=== PATIENT | male | born 1970 | race Caucasian/White ===

== ENCOUNTER 2018-01-11 21:27 | Inpatient (IN) | payer OTHER, SELFPAY ==
[2018-01-11 22:40] LABS: Acetaminophen Less than 6.0 mcg/mL (10.0-30.0); Alcohol 26 mg/dL (Less than 10); Salicylate Less than 8.0 mg/dL (15.0-30.0)
[2018-01-11 22:43] LABS: CKMB 2.7 ng/mL (0-6.6); Troponin I Less than 0.010 ng/mL (< 0.028)
--- NOTE | 2018-01-11 22:54 | CT ---
CT OF THE BRAIN WITHOUT CONTRAST 01/11/18 COMPARISON: None. HISTORY: Shakiness and headache on the left side of the head. TECHNIQUE: Multiple contiguous axial images were obtained in a CT of the brain without contrast. FINDINGS: The brain is normal in morphology and attenuation without focal lesions or confluent areas of infarct ion. There is no evidence of hydrocephalus, intracranial hemorrhage or extra-axial fluid collection. The calvarium and overlying soft tissues are unremarkable. Mucosal thickening is seen in the left max illary sinus. The other paranasal sinuses and mastoid air cells are well aerated. IMPRESSION: No evidence of acute intracranial abnormality. POS: [facility]
[2018-01-11] MEDS ORDERED: Lorazepam 2 MG/ML VIAL ONE (22:55)
[2018-01-11 23:24] LABS: Amphetamine Detected (NotDetected); Barbiturates Screen Not Detected (NotDetected); Benzodiazepine Screen Detected (NotDetected); Cocaine Metabolite Screen Not Detected (NotDetected); Medtox Control Line Valid? VALID (VALID); Medtox Reader # READER 4; Methadone Not Detected (NotDetected); Methamphetamine Detected (NotDetected); Opiate Screen Not Detected (NotDetected); Oxycodone Screen Not Detected (NotDetected); Phencyclidine (PCP) Not Detected (NotDetected); THC/Cannabinoid Screen Not Detected (NotDetected); Tricyclic Screen Not Detected (NotDetected)
[2018-01-11] MEDS ORDERED: Aspirin 325 MG TAB ONE (23:50)
[2018-01-12] MEDS ORDERED: Ondansetron ODT 4 MG TAB PO PRN (00:40)
[2018-01-12] MEDS ORDERED: Senokot S 8.6-50 MG TAB PO PRN (00:40)
[2018-01-12] MEDS ORDERED: Ondansetron PF 4 MG/2 ML Vial IVP PRN (00:40)
[2018-01-12] MEDS ORDERED: Acetaminophen 325 MG TAB PO PRN (00:40)
[2018-01-12] MEDS ORDERED: Guaifenesin DM 100-10/5 ML UDCUP PO PRN (00:40)
[2018-01-12] MEDS ORDERED: Bisacodyl 5 MG TAB PO PRN (00:40)
[2018-01-12] MEDS ORDERED: Acetaminophen 650 MG Suppository PR PRN (00:40)
[2018-01-12] MEDS: Sodium Chloride 0.9% 1,000 ML IV SCH ×3 (01:17→14:36)
[2018-01-12] MEDS: Lorazepam 2 MG/ML VIAL SLOW IVP PRN ×6 (01:18→19:48)
[2018-01-12] MEDS: Multivitamins, Adult 10 ML, Folic Acid 1 MG, Thiamine HCl 100 MG in Dextrose 5 %-0.45 %... IV SCH (01:18)
[2018-01-12 01:31] VITALS: BMI 22.8
[2018-01-12] MEDS: Ketorolac Tromethamine 30 MG/ML VIAL IVP PRN ×3 (02:01→20:59)
[2018-01-12 04:34] LABS: #Eosinphils 0.2 thou/uL (0.0-0.7); #Lymphocytes 1.2 thou/uL (1.20-3.40); #Monocytes 0.5 thou/uL (0.11-0.59); #Neutrophils 2.7 thou/uL (1.40-6.50); %Basophils 0.6 % (0.0-1.0); %Eosinophils 5.2 % (0.0-10.0); %Lymphocytes 25.8 % (21.0-51.0); %Monocytes 10.4 % (0.0-10.0); %Neutrophils 57.9 % (42.0-75.0); Hemoglobin 12.7 g/dL (14.0-18.0); Mean Corpuscular HGB CONC 33.6 g/dL (32.0-36.0); Mean Corpuscular Hemoglobin 33.1 pg (27.0-31.0); Mean Corpuscular Volume 98.4 fL (78.0-98.0); Platelet Count 191 thou/uL (130-400); Red Blood Cell (RBC) Count 3.85 mill/uL (4.70-6.10); White Blood Cell (WBC) Count 4.6 thou/uL (4.8-10.8)
[2018-01-12 04:47] LABS: Anion Gap 12 mmol/L (10-20); BUN (Urea Nitrogen) 9 mg/dL (8.9-20.6); Calc. Creatinine Clearance 114 mL/min (70-130); Calcium 8.8 mg/dL (7.8-10.44); Carbon Dioxide 24 mmol/L (22-29); Chloride 106 mmol/L (98-107); Estimated GFR-MDRD Greater than 90; Glucose 77 mg/dL (70-105); Potassium 3.9 mmol/L (3.5-5.1); Sodium 138 mmol/L (136-145)
[2018-01-12] MEDS: Diazepam 5 MG TAB PO PRN ×3 (06:18→17:32)
[2018-01-12] MEDS: Aspirin 325 mg Enteric Coated Tablet PO SCH (10:11)
[2018-01-12] MEDS: Lorazepam 1 MG TAB PO SCH ×2 (10:11→20:57)
[2018-01-12] MEDS: Enoxaparin Sodium 40 MG/0.4 ML SYRINGE SC SCH (10:11)
--- NOTE | 2018-01-12 11:49 | MRI ---
MRI BRAIN WITHOUT CONTRAST: INDICATIONS: History of left-sided weakness. COMPARISON: CT brain dated 01/11/2018. FINDINGS: No region of restricted diffusion is evident. The septum pellucidum and third ventricle are midline. No acute intracranial hemorrhage or hydrocephalus is present. Moderate mucosal thickening of the l eft maxillary sinus is again seen. There are appropriate flow voids seen within the major intracrani al arteries. IMPRESSION: 1. No acute intracranial abnormality. 2. Moderate mucosal thickening within the left maxillary sinus. POS: [facility]
[2018-01-12] MEDS: Propranolol 10 MG TAB PO SCH ×2 (14:26→20:57)
[2018-01-13] MEDS: Diazepam 5 MG TAB PO PRN ×2 (00:42→04:36)
[2018-01-13] MEDS: Sodium Chloride 0.9% 1,000 ML IV SCH ×2 (00:43→08:05)
[2018-01-13] MEDS: Lorazepam 2 MG/ML VIAL SLOW IVP PRN ×2 (01:44→14:13)
[2018-01-13] MEDS: Multivitamins, Adult 10 ML, Folic Acid 1 MG, Thiamine HCl 100 MG in Dextrose 5 %-0.45 %... IV SCH (01:46)
[2018-01-13] MEDS ORDERED: Diazepam 5 MG TAB PO PRN (06:10)
--- NOTE | 2018-01-13 07:48 | HP ---
CHIEF COMPLAINT: Ethanol withdrawal. HISTORY OF PRESENT ILLNESS: This is a 48-year-old male, presenting with chief complaint of shakiness, chills, pain, and weakness on his left side. Per records, the patient is having subjective fevers and also nose bleed. The patient has decreased sensation in the left arm and left leg on presentation and the patient is also reporting pain in the right upper quadrant and back. Upon further investigation, we found that the patient consumed about 15 ounces of wine, he does this daily and the patient also did some drugs, some polysubstance abuse. At this point, the patient endorses left-sided weakness, chills, shakiness, pain, blurry vision. The patient denies any chest pain, palpitations, dizziness, dysuria, hematuria, or hematochezia. REVIEW OF SYSTEMS: Positive for chills, fever, weakness of the left lower extremities and upper extremities. The patient endorses abdominal pain and anxiety, otherwise as documented in the HPI, all other systems were reviewed and are negative. PAST MEDICAL HISTORY: No significant past medical history. PAST SURGICAL HISTORY: No surgical history. PSYCHIATRIC HISTORY: The patient has history of anxiety. SOCIAL HISTORY: The patient drinks every day. The patient drinks 15 ounces of wine. The patient also utilizes substances of abuse. The patient does not endorse any tobacco use at this time. ALLERGIES: MORPHINE AND PENICILLIN. CURRENT MEDICATIONS: No known medications. PHYSICAL EXAMINATION: VITAL SIGNS: The patient's blood pressure is 134/87, pulse of 94, respiratory rate of 20, O2 saturation of 98%. GENERAL: The patient is alert and oriented to person, place, and time. The patient is tremulous. The patient is shaking. HEENT: Normocephalic and atraumatic. Pupils are equal, round and reactive to light. Extraocular movements are intact. No scleral icterus. No conjunctival pallor. NECK: Trachea is midline. Full range of motion. No JVD is noted. Supple. LUNGS: Clear to auscultation bilaterally. No wheezing, no rales, no rhonchi appreciated. CARDIAC: Positive S1 and S2. The patient is tachycardic. ABDOMEN: Soft, nontender, and nondistended. Positive bowel sounds in all quadrants. No pulsatile masses. No peritoneal signs. EXTREMITIES: The patient has decreased sensation in his left upper extremity and tremulousness is noted. No edema. Good pulses bilaterally at the upper extremities. Lower extremities, the patient has in the left lower extremity. Good pulses bilaterally. The patient has good strength bilaterally. NEUROLOGIC: The patient has tremors of the bilateral lower extremities. The patient has decreased sensation of the left arm and leg. The patient is alert and oriented to person, place, and time. SKIN: Warm, dry, and intact. PSYCHIATRIC: The patient is anxious. The patient has alcohol abuse. LABORATORY DATA: WBC is 4.6, hemoglobin is 12.7, hematocrit is 37.9, platelet count is 191. No left shift. Sodium is 138, potassium is 3.9, chloride is , carbon dioxide of 24, anion gap of 12, BUN is 9, creatinine is 0.27. GFR greater than . Troponin is less than 0.010. Toxicology, the patient has , and benzodiazepines. Plasma alcohol was 26. ASSESSMENT AND PLAN: This is a 48-year-old male with history of polysubstance abuse, being admitted for; 1. Ethanol withdrawal. At this point, we will have the patient in the ICU. We are going to start the patient on banana bag IV hydration. We will give the patient p.r.n. and also to help with the patient's withdrawal. 2. Methamphetamine use. We will continue supportive care. 3. History of polysubstance abuse. We will advice the patient regarding the of polysubstance abuse. 4. Ethanol abuse. We will advice the patient regarding quitting alcohol. 5. Deep venous thrombosis and gastrointestinal prophylaxis. Job ID: [id number]
[2018-01-13 07:49] VITALS: BP 113/81; TEMP 97.8
--- NOTE | 2018-01-13 07:50 | PRG ---
DATE OF SERVICE: 01/12/2018 SUBJECTIVE: The patient was seen and examined at the bedside. He is still complaining about some weakness in the left upper and lower extremity. He feels quite shaky. He says that his last alcoholic drink was yesterday morning. OBJECTIVE: VITAL SIGNS: Blood pressure is 109/62, pulse is 78, temperature is 97.8, respiratory rate 16, O2 saturation is 98% on room air. HEENT: His head is atraumatic and normocephalic. Eyes are PERRLA. Sclerae nonicteric. He is somewhat shaky during my visit. Oral mucosa is slightly dry. NECK: Supple. LUNGS: Clear. HEART: S1 and S2 normal. No S3. No S4. No any murmur. ABDOMEN: Soft. Tender to palpation in the right upper abdomen and segment of the liver is palpable. The edge stays below the costophrenic angle approximately 3 to 4 cm. Bowel sounds are present. No organomegaly. EXTREMITIES: No clubbing, cyanosis, or edema. NEUROLOGIC: He is somewhat shaky, but he follows my commands. He answers my questions properly. He moves his all 4 extremities. LABORATORY DATA: White count of 4.6, hemoglobin 12.7, hematocrit 37.9, platelet count is 191,000. Normal chemistry. IMPRESSION: 1. Transient ischemic attack versus cerebrovascular accident. He still has some residual weakness in the upper and lower extremity. 2. Alcoholism. 3. He has subjective fevers at home, but we did not notice any high fever during this hospitalization. 4. Alcohol withdrawal. The patient is going to be started on lorazepam 1 mg twice a day. 5. Left-sided weakness, stroke versus transient ischemic attack. We will obtain MRI to finalize the diagnostic workup and he will continue on aspirin. He received one dose of aspirin in the emergency room 325 mg once a day and he will be restarted on it twice a day. Job ID: [id number]
--- NOTE | 2018-01-13 07:50 | CON ---
DATE OF CONSULTATION: 01/12/2018 REASON FOR CONSULTATION: Alcohol withdrawal. HISTORY OF THE PRESENT ILLNESS: The patient is a 48-year-old male, who was admitted last night with shakiness, chills, and a nosebleed. He states that he has been drinking 2 cups of wine per day to keep him from having a tremor. I am not sure whether the tremors are related to alcohol withdrawal or he has some type of familial tremor or Parkinson's. He is most concerned about his tremor at this time and has no other complaints. PAST MEDICAL HISTORY: Essentially unremarkable. PAST SURGICAL HISTORY: None. PSYCHIATRIC HISTORY: Remarkable for anxiety. SOCIAL HISTORY: He works in the [employer], delivering equipment. Denies drug use, but his drug screen was positive for meth. ALLERGIES: MORPHINE AND PENICILLIN. REVIEW OF SYSTEMS: Otherwise negative. PHYSICAL EXAMINATION: VITAL SIGNS: Temperature 97.8, pulse 78, respirations 16, O2 saturation 98% on room air, and blood pressure 109/62. HEENT: Unremarkable. NECK: Without adenopathy, JVD, or bruits. LUNGS: Clear. CARDIAC: S1 and S2. Regular. ABDOMEN: Soft and nontender. EXTREMITIES: No edema. NEUROLOGIC: He is alert and oriented x3. He has a resting tremor that is also present with motion, it is most notable in his hands. LABORATORY DATA: Sodium 138, potassium 3.9, chloride 106, CO2 of 24, BUN 9, creatinine 0.7, and glucose 77. White blood cell count 4.6, hematocrit 37.9, and platelet count 191. Tox screen was positive for benzodiazepines, methamphetamines, and his alcohol level was 26. ASSESSMENT: Tremulous activity. I am not sure this patient can be relied on as a historian. This could be alcohol withdrawal, but it also could be some type of movement disorders such as Parkinson's or familial tremor. He may be using the alcohol to mask the effects of that. Of note, he had alcohol on board at the time of admission, so I would think he would be a little too early for withdrawal symptoms, although not totally out of question. RECOMMENDATIONS: I think, he can be transferred to the floor. We will give him some propranolol for tremor. He needs to be monitored for worsening of potential alcohol withdrawal. Job ID: [id number]
[2018-01-13] MEDS: Propranolol 10 MG TAB PO SCH ×2 (08:01→14:14)
[2018-01-13] MEDS: Enoxaparin Sodium 40 MG/0.4 ML SYRINGE SC SCH (08:02)
[2018-01-13] MEDS: Aspirin 325 mg Enteric Coated Tablet PO SCH (08:02)
[2018-01-13] MEDS: Lorazepam 1 MG TAB PO SCH (08:02)
--- NOTE | 2018-01-13 11:14 | PRG ---
DATE OF SERVICE: 01/13/2018 SUBJECTIVE: The patient is doing reasonably well. Had no complaints except for his tremor. OBJECTIVE: VITAL SIGNS: Temperature 97.8, pulse 78, respirations 18, O2 saturations 96%, and blood pressure 113/81. HEENT: Unremarkable. NECK: No JVD. LUNGS: Clear. CARDIAC: S1 and S2. Regular. ABDOMEN: Soft. EXTREMITIES: No edema. NEUROLOGICAL: He still has a resting tremor. ASSESSMENT: 1. Likely some degree of alcohol withdrawal. 2. Familial versus parkinsonian tremor versus alcohol withdrawal. PLAN: Continue current management for alcohol withdrawal. Propranolol as needed for tremor. No further Pulmonary recommendations and I will sign off. Job ID: [id number]
--- NOTE | 2018-01-13 15:02 | PDOC.PN ---
- Subjective Encounter Start Date: 01/13/18 Encounter Start Time: 15:00 Mr. Ochoa was seen today in follow-up. He is complaining of feeling like he is shaky, and he is concerned about his liver function tests. He admits he has been walking without difficulty. - Objective Resuscitation Status - Order Detail: 01/12/18 00:40 Resuscitation Status Routine Resuscitation Status: FULL: Full Resuscitation MAR Reviewed: Yes Vital Signs & Weight: Vital Signs (12 hours) Temp Pulse Resp BP Pulse Ox 01/13/18 08:00 96 01/13/18 07:46 97.8 F 78 18 113/81 96 Weight Weight 150 lb I&O: 01/12/18 01/13/18 01/14/18 06:59 06:59 06:59 Intake Total 915 5360 240 Output Total 1150 1150 Balance -235 4210 240 Result Diagrams: 01/12/18 03:56 01/12/18 03:56 Phys Exam - Physical Examination HEENT: PERRLA Respiratory: no wheezing, no rales, no rhonchi, clear to auscultation bilateral Cardiovascular: RRR, no significant murmur, no rub Gastrointestinal: soft, non-tender, no distention, positive bowel sounds Musculoskeletal: no edema Dx/Plan (1) Alcohol abuse Code(s): F10.10 - ALCOHOL ABUSE, UNCOMPLICATED Status: Acute (2) Polysubstance abuse Code(s): F19.10 - OTHER PSYCHOACTIVE SUBSTANCE ABUSE, UNCOMPLICATED Status: Acute - Plan * Patient appears clinically stable * He tends to tremble less when he is distracted * All vital signs are normal, and he has been up walking- He is stable for discharge home..
--- NOTE | 2018-01-14 15:15 | DIS ---
DATE OF ADMISSION: 01/11/2018 DATE OF DISCHARGE: 01/13/2018 DISCHARGE DISPOSITION: Home. PRIMARY DISCHARGE DIAGNOSES: 1. Alcohol intoxication. 2. Polysubstance abuse. DISCHARGE MEDICATIONS: Include; 1. Thiamine 100 mg p.o. daily. 2. Folic acid 1 mg daily. PROCEDURES: Procedures done during the admission; the patient had a CT scan of the brain, showing no acute intracranial abnormality. He also had an MRI of the brain, also negative for any acute intracranial abnormality. There was some moderate thickening of the left maxillary sinus. CODE STATUS: Full code. ALLERGIES: TO MORPHINE AND PENICILLIN. HOSPITAL COURSE: Mr. Ochoa is a pleasant 48-year-old gentleman, who presented to the emergency room, feeling shaky and having some weakness and chills and blurred vision. He presented to the emergency room and his urine drug screen was significant for methamphetamines, amphetamines, and benzodiazepines as well as his alcohol level was elevated at 26. He admitted to drinking "a few beers." Due to his weakness in the left side, a CT scan of the brain was done as well as an MRI of the following day, both of which were negative. I suspect that the symptoms are likely related to his substance abuse. He was complaining of feeling shaky and anxious. However, his vital signs were all normal with a normal heart rate. Blood pressure was 123/79, and he did not appear to be clinically in alcohol withdrawal. Therefore, he is being discharged home on thiamine and folic acid and to have close followup in the outpatient setting. Job ID: [id number]
== END 2018-01-13 16:36 | disposition home or self-care (01) | DRG 897 ==
LOC: ERS 21:27 → IMCU/EMU 23:22 → T4-B 01-12 16:31
PROVIDERS: ADMIT Internal Medicine; ATTEND Internal Medicine
DX: F10.129 Alcohol abuse with intoxication, unspecified (principal); Z88.5 Allergy status to narcotic agent; Z88.8 Allergy status to other drugs, medicaments and biological substances; F15.10 Other stimulant abuse, uncomplicated; Y90.1 Blood alcohol level of 20-39 mg/100 ml
CPT/HCPCS: 36415; 70450; 70551; 80048; 80306; 80307; 82553; 84484; 85025; 90471; 90686; 93005; 96374; G0008; J1650; J1885; J2060; J3411; J7042

== ENCOUNTER 2019-06-22 21:27 | Emergency (ER) | payer SELFPAY ==
[2019-06-23] MEDS ORDERED: HYDROcodone/Acetaminophen 5/325 mg Tablet ONE
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
== END 2019-06-23 02:25 | disposition home or self-care (01) ==
LOC: ERS 21:27
DX: S02.40FA Zygomatic fracture, left side, initial encounter for closed fracture (principal); S02.32XA Fracture of orbital floor, left side, initial encounter for closed fracture; S02.40DA Maxillary fracture, left side, initial encounter for closed fracture; S02.842A Fracture of lateral orbital wall, left side, initial encounter for closed fracture; F41.9 Anxiety disorder, unspecified; Y04.8XXA Assault by other bodily force, initial encounter
CPT/HCPCS: 70450; 70486; 72125; 93005; L0120

== ENCOUNTER 2021-03-31 06:02 | Emergency (ER) | payer SELFPAY ==
[2021-03-31] MEDS ORDERED: Lidocaine Viscous Sol 2% 15 ml UD Cup ONE (07:41)
[2021-03-31] MEDS ORDERED: Mag-Al 1200 mg/1200 mg/30 ML UDCUP ONE (07:41)
[2021-03-31] MEDS ORDERED: Ketorolac Tromethamine 30 MG/ML VIAL ONE (09:06)
[2021-03-31 09:24] LABS: #Eosinphils 0.3 thou/uL (0.0-0.7); #Monocytes 0.4 thou/uL (0.11-0.59); #Neutrophils 3.7 thou/uL (1.40-6.50); %Basophils 0.6 % (0.0-1.0); %Lymphocytes 30.8 % (21.0-51.0); %Monocytes 6.3 % (0.0-10.0); %Neutrophils 57.3 % (42.0-75.0); Hemoglobin 14.8 g/dL (14.0-18.0); Mean Corpuscular HGB CONC 32.5 g/dL (32.0-36.0); Mean Corpuscular Hemoglobin 31.4 pg (27.0-31.0); Mean Corpuscular Volume 96.6 fL (78.0-98.0); Mean Platelet Volume 7.3 fL (7.4-10.4); Platelet Count 238 thou/uL (130-400); White Blood Cell (WBC) Count 6.4 thou/uL (4.8-10.8)
[2021-03-31 09:47] LABS: ALT (SGPT) 25 U/L (8-55); AST (SGOT) 35 U/L (5-34); Albumin 3.7 g/dL (3.5-5.0); Alkaline Phosphatase 69 U/L (40-110); Anion Gap 17 mmol/L (10-20); BUN (Urea Nitrogen) 14 mg/dL (8.9-20.6); Bilirubin, Total Less than 0.2 mg/dL (0.2-1.2); Calc. Creatinine Clearance 0 mL/min (70-130); Calcium 8.3 mg/dL (7.8-10.44); Carbon Dioxide 20 mmol/L (22-29); Chloride 106 mmol/L (98-107); Globulin 2.5 g/dL (2.4-3.5); Glucose 102 mg/dL (70-105); Lipase 60 U/L (8-78); Potassium 3.5 mmol/L (3.5-5.1); Protein, Total 6.2 g/dL (6.0-8.3); Sodium 139 mmol/L (136-145)
== END 2021-03-31 07:47 | disposition home or self-care (01) ==
LOC: ERS 06:02
DX: R07.2 Precordial pain (principal); F41.9 Anxiety disorder, unspecified; F17.210 Nicotine dependence, cigarettes, uncomplicated
CPT/HCPCS: 36415; 71045; 80053; 83690; 84484; 85025; 93005; 96372; J1885

== ENCOUNTER 2022-04-17 21:29 | Emergency (ER) | payer SELFPAY ==
[2022-04-17] MEDS ORDERED: Boostrix 0.5 ML (Tdap) VIAL (>/=7 yrs of age) ONE (23:18)
[2022-04-17] MEDS ORDERED: Ketorolac Tromethamine 30 MG/ML VIAL ONE (23:18)
== END 2022-04-17 23:56 | disposition home or self-care (01) ==
LOC: ERS 21:29
DX: S61.032A Puncture wound without foreign body of left thumb without damage to nail, initial encounter (principal); F17.210 Nicotine dependence, cigarettes, uncomplicated; W31.2XXA Contact with powered woodworking and forming machines, initial encounter; Y93.02 Activity, running
CPT/HCPCS: 90471; 90715; J1885